=== PATIENT | female | born 1995 | race American Indian/Alaskan Native ===

== ENCOUNTER 2017-01-23 02:10 | Emergency (ER) | payer SELFPAY ==
[2017-01-23 02:23] VITALS: BP 112/83; PULSE 99; RESP 17; TEMP 98.3; O2SAT 100
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
== END 2017-01-23 03:05 | disposition home or self-care (01) ==
LOC: H.ER 02:10
DX: S51.012A Laceration without foreign body of left elbow, initial encounter (principal); W18.02XA Striking against glass with subsequent fall, initial encounter; Y93.9 Activity, unspecified